=== PATIENT | male | born 2000 | race Caucasian/White ===

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

== ENCOUNTER 2020-08-07 20:02 | Emergency (ER) | payer SELFPAY ==
[2020-08-07 20:07] VITALS: BP 123/67; PULSE 102; RESP 18; TEMP 37; O2SAT 99
--- NOTE | 2020-08-07 20:31 | ED.GENADUL_ITS ---
Discharge Plan Disposition Patient Disposition: HOME Condition: Stable Discharge Details Clinical Impression: Laceration of hand, right Primary Care Provider: Jose Orourke ED Provider: Lynnette Solano Home Meds and New Rx's Prescriptions: No Action No Known Home Meds RF: 0 Discharge Instructions Instructions: Laceration (ED) Additional Instructions: No soaking, leave alone for ~24 hours and then may wash under running soap and water tomorrow. Keep clean and dry. Allow to air out at least 2 hours every day. Return to the ED for any signs of infection including red streaks going up the hand, increased swelling, increased drainage or increased pain. Have sutures removed in 7 to 10 days. He may come back here or be seen in [facility] or your primary care. Follow up with primary care provider in 3-5 days. Return to ED sooner if any worsening or concerns. Increase oral fluids. Please take Tylenol or Ibuprofen with food every 4-6 hours as needed for pain and swelling. Referrals: Jose Orourke [Primary Care Provider] - Medical Decision Making 20-year-old male presents with a laceration noted to the dorsum of his right hand. He was taking a nail out of a tire approximately 1 hour ago when he scraped the top of his hand onto the nail. There is approximate 3 and half to 4 cm linear laceration noted to the dorsum of his right hand. He does have full range of motion to his hand and full sensation of his digits. Unknown when last tetanus injection was. Distal CMS intact Wound was infiltrated with 1% lidocaine with epi, laceration was well anesthetized patient tolerated well. Wound was irrigated and cleaned with 2% chlorhexidine surgical scrub. Patient tolerated well. No foreign bodies visualized. Laceration was repaired with 6 simple interrupted sutures of four- point 0 Ethilon. Wound was well approximated. Patient discharged with home care instructions, instructed to have sutures removed in 7 to 10 days. Discussed strict return instructions, verbalized understanding. This text was generated using [employer] system, please disregard any oddities of phrase or misspellings. HPI General Mode of arrival: ambulatory . Date/Time Provider Initiated Documentation: 08/07/20 20:07 . Limitations to Documentation: no limitations . Information obtained by: patient . HPI Narrative: 20-year-old male presents with a laceration noted to the dorsum of his right hand. He was taking a nail out of a tire approximately 1 hour ago when he scraped the top of his hand onto the nail. There is approximate 3 and half to 4 cm linear laceration noted to the dorsum of his right hand. He does have full range of motion to his hand and full sensation of his digits. Unknown when last tetanus injection was. Distal CMS intact Related Data Home Medications Medication Instructions Recorded Confirmed Unknown [No Known Home Meds] 09/24/16 08/07/20 Allergies Allergy/AdvReac Type Severity Reaction Status Date / Time No Known Allergies Allergy Unverified 08/07/20 20:11 General Stated Complaint: Laceration VICTORINA: 4 Review of Systems All systems reviewed & are unremarkable except as noted in HPI and below Integumentary/Breasts Skin/Breast: Reports wounds (Laceration of the dorsum of the right hand) [facility] Social History Smoking/Tobacco Use Status: Never Alcohol Intake: never Substance use type: does not use Do you feel safe at home: Yes Do you feel safe in your relationship?: Yes Exam Narrative Exam Narrative: Constitutional: Alert and oriented x3. Appears stated age. Normal body habitus. Head: Normocephalic, no trauma. Chest: RRR, Normal S1, S2, distal pulses intact. Resp: Lungs clear to auscultation bilaterally, no wheezes, rales, or rhonchi. Musculoskeletal: Normal gait, 5/5 strength to all four extremities. Skin: 4 cm linear laceration noted to the dorsum of his right hand. Capillary refill less than 2 sec. Skin Trauma: laceration right dorsal hand linear, superficial, involves subcutaneous tissue, motor nerve function intact and sensation intact Nails: normal Course Vital Signs Vital signs: Vital Signs Temperature 37 C 08/07/20 20:07 Pulse 102 H 08/07/20 20:07 Respiratory Rate 18 08/07/20 20:07 Blood Pressure 123/67 08/07/20 20:07 Pulse Oximetry 99 08/07/20 20:07 Temperature 37 C 08/07/20 20:07 Temperature Source Temporal Artery Scan 08/07/20 20:07 Pulse 102 H 08/07/20 20:07 Respiratory Rate 18 08/07/20 20:07 Respiratory Effort Non-Labored 08/07/20 20:09 Blood Pressure 123/67 08/07/20 20:07 Blood Pressure Position Sitting 08/07/20 20:07 Pulse Oximetry 99 08/07/20 20:07 Oxygen Delivery Method Room Air 08/07/20 20:07 Oxygen Flow Rate 0 08/07/20 20:07 Pain Level 3 08/07/20 20:07 Procedures Laceration Laceration 1: Site: hand Side (If applicable): right Size (cm): 4 Description: linear Depth: simple, single layer Local Anesthetic: Lidocaine 1% and with Epi Amount of anesthesia used (mL): 1.5 Pre-repair: wound explored, irrigated extensively and deep structures intact Skin layer closed with: nylon Size (cm): 4-0 Number of sutures: 6 Technique: simple, interrupted
== END 2020-08-07 21:20 | disposition home or self-care (01) ==
PROVIDERS: Emergency Provider Registered Nurse Emergency; PCP Specialist/Technologist Athletic Trainer
DX: S61.411A Laceration without foreign body of right hand, initial encounter (principal); W45.0XXA Nail entering through skin, initial encounter
CPT/HCPCS: 12002; 90471

== ENCOUNTER 2020-10-21 11:36 | Outpatient (REF) | payer SELFPAY ==
[2020-10-24 15:33] LABS: Chlamydia Result Negative (Negative); GC Result Negative (Negative)
== END 2020-10-21 11:56 ==
LOC: NCHCN 11:36
PROVIDERS: PCP Nurse Practitioner Family; Visit Provider Nurse Practitioner Family
DX: Z00.00 Encounter for general adult medical examination without abnormal findings (principal); Z11.3 Encounter for screening for infections with a predominantly sexual mode of transmission; Z20.828 Contact with and (suspected) exposure to other viral communicable diseases
CPT/HCPCS: 87491; 87591

== ENCOUNTER 2024-07-07 17:21 | Outpatient (REF) | payer MEDICAID, SELFPAY ==
[2024-07-07 18:56] LABS: Abs Immature Grans 0.01 10^3/uL (0.0-0.06); Absolute Basophil Count 0.04 10^3/uL (0.0-0.2); Absolute Eosinophil Count 0.06 10^3/uL (0.0-0.7); Absolute Lymphocyte Count 1.74 10^3/uL (1.2-3.4); Absolute Monocyte Count 0.42 10^3/uL (0.1-0.8); Absolute Neutrophil Count 3.16 10^3/uL (1.2-6.7); Basophils % 0.7 %; Eosinophils % 1.1 %; HCT 46.1 % (40.0-50.0); HGB 16.1 g/dL (13.5-17.5); Immature Grans % 0.2 %; MCH 30.4 pg (27.0-33.0); MCHC 34.9 % (32.0-36.0); MCV 87 fL (80-95); Monocytes % 7.7 %; Neutrophils % 58.3 %; Platelet Count 200 10^3/uL (130-400); RBC 5.29 10^6/uL (4.36-5.78); RDW 13.1 % (11.8-14.1); WBC 5.43 10^3/uL (4.4-10.8)
[2024-07-07 19:06] LABS: ESR 1 mm/hr (0-15)
[2024-07-07 20:10] LABS: ALT 26 U/L (16-63); AST 15 U/L (15-37); Albumin 4.6 g/dL (3.4-5.0); Alkaline Phosphatase 71 U/L (46-116); Anion Gap 10.3 mmol/L (3-11); BUN 20 mg/dL (7-18); CO2 27.7 mmol/L (21.0-32.0); Calcium 9.4 mg/dL (8.5-10.1); Calculated LDL 86 mg/dL (<100); Chloride 104 mmol/L (98-107); Cholesterol 157 mg/dL (<200); Estimated GFR 107.78 (mL/min/1.73m2); Glucose 79 mg/dL (74-106); HDL Cholesterol 66 mg/dL (40-60); Potassium 4.4 mmol/L (3.5-5.1); Sodium 142 mmol/L (136-145); TSH (W/Ref FT4) 1.78 uIU/mL (0.36-3.74); Total Protein 7.5 g/dL (6.4-8.2); Triglyceride 27 mg/dL (<150); Vitamin B12 716 pg/mL (193-986); Vitamin D 25 Total 37.4 ng/mL (30-100)
[2024-07-07 21:00] LABS: Hemoglobin A1C 4.9 % (<5.7)
[2024-07-09 10:14] LABS: Lyme Ab w Rflx to Lyme Confirm Negative (Negative)
[2024-07-09 12:20] LABS: IgA 217 mg/dL (85-499); Interpretation (See Note); Tissue Transglutaminase IgA <4.0 CU (<20.0)
== END 2024-07-07 17:22 | disposition home or self-care (01) ==
LOC: LBN 17:21
PROVIDERS: PCP Nurse Practitioner Family; Visit Provider Nurse Practitioner Family
DX: Z00.00 Encounter for general adult medical examination without abnormal findings (principal)
CPT/HCPCS: 80053; 80061; 82306; 82784; 83516; 85652; 82607; 83036; 84443; 85025; 86618